=== PATIENT | female | born 1950 | race Caucasian/White ===

== ENCOUNTER 2021-04-27 14:22 | Emergency (ER) | payer MEDICARE, BC ==
[~2021-04-27] VITALS: Ht 165.1 cm; Wt 77.3 kg
[2021-04-27] MEDS ORDERED: LR 1,000 ML IV SCH (14:35)
[2021-04-27] MEDS ORDERED: MORPHINE 4 MG/ML 1ML VIAL/SYRINGE (J2270) IV ONE ×2 (14:35→16:00)
[2021-04-27] MEDS ORDERED: MORPHINE 2 MG/ML 1ML VIAL (J2270) IV ONE (14:50)
[2021-04-27] MEDS ORDERED: propofoL 200 MG/20 ML VIAL IV ONE ×5 (14:55→15:52)
[2021-04-27 15:25] LABS: BASO % 0.4 % (0.0-1.0); EOS # 0.1 10^3/uL (0.0-0.5); EOS % 1.9 % (0.0-3.0); HEMATOCRIT 40.1 % (36.0-47.0); LYMPH % 13.4 % (24.0-44.0); MEAN CORPUSCULAR HEMOGLOBIN 28.1 pg (27.0-33.0); MEAN CORPUSCULAR HGB CONC 32.4 g/dl (32.0-36.5); MEAN CORPUSCULAR VOLUME 86.8 fl (80.0-96.0); MONO # 0.5 10^3/uL (0.0-0.8); MONO % 6.3 % (2.0-8.0); NEUTROPHILS # 5.8 10^3/uL (1.5-8.5); NEUTROPHILS % 77.3 % (36.0-66.0); PLATELET COUNT, AUTOMATED 229 10^3/uL (150-450); RED BLOOD COUNT 4.62 10^6/uL (4.00-5.40); WHITE BLOOD COUNT 7.5 10^3/uL (4.0-10.0)
--- NOTE | 2021-04-27 15:41 | REP ---
INDICATION: trauma COMPARISON: None. TECHNIQUE: AP, lateral, bilateral oblique views. FINDINGS: Comminuted fracture dislocation at the ankle. Fractures of the distal fibula and tibia with complete disruption of the joint space. Overlying soft tissue swelling. IMPRESSION: Comminuted fracture dislocation at the ankle. <Electronically signed by Ismael Garcia > 04/27/21 153
--- NOTE | 2021-04-27 15:42 | REP ---
INDICATION: trauma COMPARISON: None. TECHNIQUE: AP and lateral views of the left tibia/fibula. FINDINGS: Comminuted fracture dislocation of the distal fibula and tibia with complete disruption of the ankle joint and overlying soft tissue swelling. Advanced tricompartmental osteoarthritic degenerative changes at the knee noted. Suprapatellar effusion cannot be excluded. IMPRESSION: Comminuted fracture dislocation at the distal tibia/fibula with complete disruption of the ankle joint. 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 <Electronically signed by Ismael Garcia > 04/27/21 2070
[2021-04-27 15:54] LABS: ALBUMIN 3.9 GM/DL (3.2-5.2); ALT/SGPT 23 U/L (12-78); BILIRUBIN,TOTAL 0.3 MG/DL (0.2-1.0); BLOOD UREA NITROGEN 19 MG/DL (7-18); CARBON DIOXIDE LEVEL 27 MEQ/L (21-32); CHLORIDE LEVEL 106 MEQ/L (98-107); GLOMERULAR FILTRATION RATE > 60.0 (>39); GLUCOSE, FASTING 102 MG/DL (70-100); MAGNESIUM LEVEL 2.3 MG/DL (1.8-2.4); POTASSIUM SERUM 4.4 MEQ/L (3.5-5.1); SODIUM LEVEL 138 MEQ/L (136-145); TOTAL PROTEIN 6.7 GM/DL (6.4-8.2)
--- NOTE | 2021-04-27 16:31 | REP ---
INDICATION: post reduction COMPARISON: 04/27/2021 at 3:13 p.m. TECHNIQUE: AP, lateral, bilateral oblique views. FINDINGS: Improved alignment for the comminuted fracture dislocation of the distal tibia and fibula. IMPRESSION: Comminuted fracture dislocation with improved alignment as compared to original exam. <Electronically signed by Ismael Garcia > 04/27/21 0460
[2021-04-27 16:48] LABS: RSV AMPLIFICATION NEGATIVE (NEGATIVE)
[2021-04-27] MEDS ORDERED: ZOLO100T PO (18:06)
[2021-04-27] MEDS ORDERED: METO1TAB32 PO (18:06)
[2021-04-27] MEDS ORDERED: LOSA100T50 PO (18:06)
[2021-04-27] MEDS ORDERED: ANAS1TAB2 PO (18:06)
[2021-04-27] MEDS ORDERED: KETOROLAC 30 MG/ML 1ML VIAL IV ONE (18:15)
[2021-04-27] MEDS ORDERED: ACETAMINOPHEN *IV* 1,000 MG in IV 1 EA IV ONE (18:25)
[2021-04-27 19:15] VITALS: BP 161/71
== END 2021-04-27 19:20 | disposition short-term general hospital (02) ==
LOC: EDBD 14:22 → M ED 14:22
DX: S82.854A Nondisplaced trimalleolar fracture of right lower leg, initial encounter for closed fracture (principal); W10.8XXA Fall (on) (from) other stairs and steps, initial encounter; Y92.019 Unspecified place in single-family (private) house as the place of occurrence of the external cause; Y93.9 Activity, unspecified; Y99.9 Unspecified external cause status; I10 Essential (primary) hypertension; F33.9 Major depressive disorder, recurrent, unspecified; Z79.899 Other long term (current) drug therapy
CPT/HCPCS: 27816; 73590; 73610; 80053; 83735; 85025; 87631; 96361; 96365; 96375; 96376; 99285; J0131; J1885; J2270